=== PATIENT | female | born 1980 | race Caucasian/White ===

== ENCOUNTER 2017-06-25 09:24 | Outpatient (CLI) | payer OTHER ==
--- NOTE | 2017-06-25 17:25 | Ultrasound Report ---
LIMITED OB ULTRASOUND: 06/25/2017 CLINICAL INDICATION: Pre-term labor, check cervical length and position. TECHNIQUE: Real-time scanning was performed with claims service representative static images obtained. LAST MENSTRUAL PERIOD end of 09/2016 Clinical Age 35 weeks 5 days US Age 35 weeks 4 days EFW Hadlock 2601 EFW% Hadlock -- Heart Rate 145 bpm EDC 07/25/2017 US EDC 07/26/2017 BPD Hadlock 37 weeks 1 day; Mean mm 91 HC Hadlock 37 weeks 0 days; Mean mm 326 AC Hadlock 35 weeks 5 days; Mean mm 317 FL Hadlock 32 weeks 3 days; Mean mm 62 Presentation cephalic Placental Location center fundal -maternal left Cervical Length 3.4 cm Amniotic Fluid 11.22 FINDINGS: There is a single viable intrauterine gestation, in cephalic presentation. heart rate is 145 BPM. The placenta is anterior to fundal, without evidence of previa. Amniotic fluid volume is normal, with an amniotic fluid index of 11.2. The cervix is long and closed, measuring 3.4 cm. By size, the fetus measures 35 weeks 4 days (35 weeks 5 days per patient). Estimated weight by Hadlock method is 2601 grams. IMPRESSION: SINGLE VIABLE INTRAUTERINE GESTATION, IN CEPHALIC PRESENTATION. THE CERVIX MEASURES 3.4 CM, AND IS CLOSED. MTDD
== END 2017-06-25 09:25 | disposition home or self-care (01) ==
LOC: DI 09:24
PROVIDERS: ATTEND Midwife
DX: O60.00 Preterm labor without delivery, unspecified trimester (principal)
CPT/HCPCS: 76815

== ENCOUNTER 2017-07-21 16:52 | Emergency (ER) | payer OTHER ==
--- NOTE | 2017-07-21 17:10 | ED Physician Documentation ---
PD HPI FEMALE - Stated complaint Stated Complaint: FEMALE - History obtained from History obtained from: Patient, Family - History of Present Illness Timing - onset: How many hours ago (3) Timing - duration: Hours (3) Timing - details: Abrupt onset Pain level max: 4 Pain level max: 2 - Additional information Additional information: gave to a healthy female baby at 1422 today. Has a reported perineal tear. Here to see OB. Review of Systems Cardiac: denies: Chest pain / pressure Neurologic: denies: Syncope PD PAST MEDICAL HISTORY - Past Medical History Past Medical History: No - Past Surgical History Past Surgical History: No - Present Medications Home Medications: Ambulatory Orders Medication Instructions Recorded Confirmed Cephalexin [Keflex] 500 mg PO Q6H #28 capsule 01/12/16 07/21/17 Venlafaxine HCl [Venlafaxine HCl 300 mg PO DAILY 01/12/16 07/21/17 ER] - Allergies Allergies/Adverse Reactions: Allergies Allergy/AdvReac Type Severity Reaction Status Date / Time acetaminophen [From Vicodin] Allergy Rash Verified 01/12/16 17:28 codeine Allergy Rash Verified 07/21/17 17:12 hydrocodone bitartrate * Allergy Rash Verified 07/21/17 17:12 [From Vicodin] - Social History Does the pt smoke?: No Smoking Status: Never smoker Does the pt drink ETOH?: No Does the pt have substance abuse?: No - Immunizations Immunizations are current?: Yes PD ED PE NORMAL - Vitals Vital signs reviewed: Yes - General General: Alert and oriented X 3, No acute distress - HEENT HEENT: Moist mucous membranes - Neck Neck: Supple, no meningeal sign - Cardiac Cardiac: RRR, Strong equal pulses - Respiratory Respiratory: No respiratory distress, Clear bilaterally - Abdomen Abdomen: Soft, Non tender, Non distended - Derm Derm: Warm and dry - Neuro Neuro: Alert and oriented X 3 - Psych Psych: Normal mood, Normal affect Results - Vitals Vitals: Vital Signs - 24 hr 07/21/17 17:09 Temperature 36.6 C Heart Rate 82 Respiratory 16 Rate Blood Pressure 133/82 H O2 Saturation 98 Oxygen O2 Source Room air PD MEDICAL DECISION MAKING - ED course Complexity details: considered differential, d/w patient, d/w family, d/w technical healthcare consultant ED course: D/w Dr. Pires and pt will be transferred to OB for further evaluation. No acute emergency medical condition that needs to be stabilized in the emergency department at this time. This document was made in part using voice recognition software. While efforts are made to proofread this document, sound alike and grammatical errors may occur. Departure - Departure Disposition: 01 Home, Self Care Clinical Impression: Vaginal laceration Qualifiers: Encounter type: initial encounter Qualified Code(s): S31.41XA - Laceration without foreign body of vagina and vulva, initial encounter Condition: Good Discharge Date/Time: 07/21/17 17:10
[2017-07-21 17:12] VITALS: BP 133/82
== END 2017-07-21 17:10 | disposition home or self-care (01) ==
LOC: ED 16:52
DX: O70.20 Third degree perineal laceration during delivery, unspecified (principal)
CPT/HCPCS: 59300; 85025; A9270; J2060; 96374; 96375; 96376; 99215; 99282; 99283

== ENCOUNTER 2017-07-21 17:10 | Outpatient (CLI) | payer OTHER ==
[2017-07-21] MEDS ORDERED: LIDOCAINE 1% 50 ML MDV ONE (17:44)
[2017-07-21] MEDS ORDERED: SODIUM CHLORIDE FLUSH 0.9% 10 ML SYRINGE IVP ONE ×3 (17:58→18:28)
[2017-07-21] MEDS ORDERED: LORazepam 2 MG/ML VIAL IVP PRN (18:02)
[2017-07-21 18:07] LABS: BASOPHILS % (AUTO) 0.3 %; EOSINOPHILS # (AUTO) 0.1 10^3/uL (0.0-0.7); EOSINOPHILS % (AUTO) 0.3 %; HGB - HEMOGLOBIN 11.2 g/dL (12.0-16.0); LYMPHOCYTES # (AUTO) 1.8 10^3/uL (1.5-3.5); LYMPHOCYTES % (AUTO) 10.2 %; MEAN CORPUSCULAR HEMOGLOBIN 29.7 pg (27.0-31.0); MEAN CORPUSCULAR HGB CONC 33.9 g/dL (32.0-36.0); MEAN CORPUSCULAR VOLUME 87.7 fL (81.0-99.0); MEAN PLATELET VOLUME 7.6 fL (7.9-10.8); MONOCYTES # (AUTO) 0.7 10^3/uL (0.0-1.0); NEUTROPHILS # (AUTO) 14.7 10^3/uL (1.5-6.6); NEUTROPHILS % (AUTO) 85.2 %; PLT - PLATELET COUNT 293 10^3/uL (130-450); RED BLOOD COUNT 3.78 10^6/uL (4.20-5.40); RED CELL DISTRIBUTION WIDTH 12.5 % (12.0-15.0); WHITE BLOOD COUNT 17.3 x10^3/uL (4.8-10.8)
[2017-07-21] MEDS ORDERED: LORazepam 2 MG/ML VIAL IVP ONE (18:10)
[2017-07-21] MEDS ORDERED: fentaNYL 100 MCG/2 ML VIAL IVP PRN ×2 (18:17→19:00)
[2017-07-21] MEDS ORDERED: fentaNYL 100 MCG/2 ML VIAL ONE (18:27)
[2017-07-21] MEDS ORDERED: DOCUSATE SODIUM 100 MG CAPSULE PO SCH (19:45)
[2017-07-21 20:03] VITALS: BP 139/82
--- NOTE | 2017-07-22 09:15 | PROCEDURE REPORT ---
DATE OF SERVICE: 07/21/2017 Physician: Steven Pires MD PREOPERATIVE DIAGNOSES 1. Laceration with extension to third degree suspect. 2. Recent home delivery with vishal [employer]. POSTOPERATIVE DIAGNOSIS: Partial third-degree laceration confirmed and successfully repaired. PROCEDURE: Third-degree laceration repair. SURGEON: Steven Pires MD, FACOG, FICS ANESTHESIA: 20 mL of lidocaine local; Ativan 1 mg; fentanyl 50 mcg. ESTIMATED BLOOD LOSS: 50 mL COMPLICATIONS: None. IV FLUIDS: Hep-Lock IV used only for IV push medications. URINE OUTPUT: None during the current procedure.. FINDINGS: Careful examination of the laceration finds a deep midline second- degree defect that extended through the external anal capsule and partially into the underlying muscle. This capsular defect was on the right side and approximately 15% of the muscle was disrupted. Sterile glove rectal exam confirmed no extension into the rectum. The vaginal portion of the laceration extended upward to approximately 4 cm. There were large hemorrhoids noted, none seemed thrombosed. Cervix was intact. Uterine bleeding was well controlled. Post-repair examination found pentecostalism of external anal sphincter integrity and no rectal extension. INDICATIONS: Just shortly before 5 o'clock, I was informed by Jillian Mcleod tax map technician, that she had a rapid delivery and possible third-degree extension. She was instructed to come to the [facility] with the patient for evaluation and repair. She reported the placenta was delivered intact, and the baby was doing well. Uterus was firm, and bleeding was controlled. TECHNIQUE: Patient went to labor and delivery from the emergency room. Patient was placed in the birthing bed in the dorsal lithotomy position. Note: The bed had been broken down to permit easy access and easy visualization. Patient was understandably excited and anxious, complaining of perineal pain on touch. At first, divided dose of Ativan 0.5 mg was given. Next, the perineum was numbed with lidocaine, approximately 10 mL, which the patient found to be uncomfortable. To provide better analgesia, fentanyl 50 mcg then was given IV push, and the patient was allowed to recover her composure. Jillian Mcleod and were at bedside providing encouragement and supportive care. The wound was examined to determine the extent of the laceration wound. Gelpi retractor was placed into the perineal wound and expanded to provide adequate visualization. The area was rinsed with sterile normal saline and the extent of the wound inspected. The external sphincter defect was closed with 6 interrupted sutures of 3-0 Vicryl in a radial fashion. The capsular defect was roughly one-half of the circumference. Interrupted sutures Of 3-0 Vicryl were placed to reconstruct the sphincter which included the frayed portion of disrupted external anal sphincter. The series of sutures reconstructed the integrity of the external sphincter mechanism. Next, the skin lacerations around the anus and hemorrhoids were closed with 3 strands of running subcuticular 4-0 Vicryl. The vaginal tube was reconstructed with a running interlocked stitch of 2-0 Vicryl. A crown stitch was done with 2-0 Vicryl that brought together the perineal body and elevated the introitus. Deep space was closed with another interrupted 2-0 Vicryl. Perineal skin was closed with interrupted sutures of 4-0 Vicryl. Care was taken to match the introital junction. Post repair, the sterilizer operator inserted the index finger of his left hand and ensured there were no intraluminal stitches or hidden defects. The perineum then was washed with clean water. The patient remained for approximately 60-90 minutes and ensured that she was doing well. She was given complete wound care instructions inclusive of the importance of a high fiber diet with supplemental Colace. Motrin 600 q.6 hours was given for pain. Narcotic was not felt to be warranted. Prior to discharge, patient received complete warning sign and callback instructions. She is to continue ice for 24 hours and then begin a regimen of a daily warm water sitz bath. Follow up in 1 [facility] for wound inspection. cc: Jillian Mcleod TD: 07/21/2017 21:27 [facility]
== END 2017-07-21 19:50 | disposition home or self-care (01) ==
LOC: WFO 17:10 → FBP 17:14 → WFO 19:50
PROVIDERS: ATTEND Obstetrics & Gynecology
DX: O70.20 Third degree perineal laceration during delivery, unspecified (principal)
CPT/HCPCS: 85025; 99215; A9270; J2060

== ENCOUNTER 2018-08-12 17:06 | Outpatient (CLI) | payer OTHER | END 2018-08-12 17:07 | disposition EMS.NT | LOC: EMS 17:06 | PROVIDERS: ATTEND Surgery | DX: Z04.1 Encounter for examination and observation following transport accident (principal); V53.5XXA Driver of pick-up truck or van injured in collision with car, pick-up truck or van in traffic accident, initial encounter; Y92.414 Local residential or business street as the place of occurrence of the external cause ==

== ENCOUNTER 2018-08-16 09:16 | Emergency (ER) | payer OTHER ==
[2018-08-16] MEDS ORDERED: KETOROLAC 60 MG/2 ML VIAL IM STA (09:37)
[2018-08-16] MEDS ORDERED: DEXAMETHASONE 10 MG/ML VIAL PO STA (09:37)
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
[2018-08-16 10:24] VITALS: BP 127/87
== END 2018-08-16 10:45 | disposition home or self-care (01) ==
LOC: ED 09:16
DX: S16.1XXA Strain of muscle, fascia and tendon at neck level, initial encounter (principal); M54.6 Pain in thoracic spine; V43.52XA Car driver injured in collision with other type car in traffic accident, initial encounter
CPT/HCPCS: 72125; 96372; 99283; 99284

== ENCOUNTER 2018-09-19 08:45 | Outpatient (CLI) | payer OTHER ==
[2018-09-19 12:35] LABS: BASOPHILS # (AUTO) 0.1 10^3/uL (0.0-0.1); BASOPHILS % (AUTO) 0.9 %; EOSINOPHILS # (AUTO) 0.2 10^3/uL (0.0-0.7); EOSINOPHILS % (AUTO) 2.6 %; HGB - HEMOGLOBIN 14.1 g/dL (12.0-16.0); LYMPHOCYTES # (AUTO) 1.8 10^3/uL (1.5-3.5); LYMPHOCYTES % (AUTO) 24.6 %; MEAN CORPUSCULAR HEMOGLOBIN 31.6 pg (27.0-31.0); MEAN CORPUSCULAR HGB CONC 34.6 g/dL (32.0-36.0); MEAN CORPUSCULAR VOLUME 91.4 fL (81.0-99.0); MEAN PLATELET VOLUME 7.5 fL (7.9-10.8); MONOCYTES # (AUTO) 0.5 10^3/uL (0.0-1.0); MONOCYTES % (AUTO) 7.3 %; NEUTROPHILS # (AUTO) 4.7 10^3/uL (1.5-6.6); NEUTROPHILS % (AUTO) 64.6 %; PLT - PLATELET COUNT 284 10^3/uL (130-450); RED BLOOD COUNT 4.46 10^6/uL (4.20-5.40); RED CELL DISTRIBUTION WIDTH 12.5 % (12.0-15.0); WHITE BLOOD COUNT 7.3 x10^3/uL (4.8-10.8)
[2018-09-19 13:08] LABS: ALBUMIN 4.5 g/dL (3.2-5.5); ALBUMIN/GLOBULIN RATIO 1.3 (1.0-2.2); ALKALINE PHOSPHATASE 74 IU/L (42-121); ALT ALANINE AMINOTRANSFERASE 129 IU/L (10-60); AST ASPARTATE AMINOTRANSFERASE 128 IU/L (10-42); BILIRUBIN,TOTAL 0.7 mg/dL (0.2-1.0); BUN - BLOOD UREA NITROGEN 11 mg/dL (6-20); CALCIUM 8.7 mg/dL (8.5-10.3); CARBON DIOXIDE - CO2 23 mmol/L (21-32); CHLORIDE 101 mmol/L (101-111); CHOL/HDL RATIO 5.1 (<4.4); CHOLESTEROL 280 mg/dL; CREATININE 0.6 mg/dL (0.4-1.0); GFR - MDRD 114 (>89); GLUCOSE 115 mg/dL (70-100); HDL CHOLESTEROL 55 mg/dL; LDL CHOLESTEROL,CALCULATED 199 mg/dL; LDL/HDL RATIO 3.6 (<4.4); SODIUM 135 mmol/L (135-145); TOTAL PROTEIN 7.9 g/dL (6.7-8.2); VLDL CHOLESTEROL 26 mg/dL
== END 2018-09-19 08:46 ==
LOC: LAB.WCP 08:45
PROVIDERS: ATTEND Nurse Practitioner
DX: Z00.00 Encounter for general adult medical examination without abnormal findings (principal); Z13.29 Encounter for screening for other suspected endocrine disorder; Z13.220 Encounter for screening for lipoid disorders
CPT/HCPCS: 36415; 80053; 80061; 83721; 84443; 85025

== ENCOUNTER 2018-11-04 08:39 | Outpatient (CLI) | payer OTHER ==
--- NOTE | 2018-11-04 10:40 | XRAY Report ---
Reason: LOW BACK PAIN, THORACIC REGION Procedure Date: 11/04/2018 Accession Number: [id number] / [id number] Procedure: WCP - Thoracic Spine 2 View CPT Code: FULL RESULT: EXAM: THORACIC SPINE RADIOGRAPHY EXAM DATE: 11/04/2018 08:58 AM. CLINICAL HISTORY: LOW BACK PAIN, THORACIC REGION. COMPARISON: None. TECHNIQUE: 2 views. FINDINGS: Alignment: Minimal dextroconvex thoracic scoliosis centered about T6-T7. No listhesis. Bones: No fractures or bone lesions. Disks: Normal. Disk heights are maintained. Soft Tissues: Normal. The visualized lungs and cardiomediastinal silhouette are normal. IMPRESSION: Minimal thoracic scoliosis. RADIA
--- NOTE | 2018-11-04 10:40 | XRAY Report ---
Reason: LOW BACK PAIN, THORACIC REGION Procedure Date: 11/04/2018 Accession Number: [id number] / [id number] Procedure: WCP - Lumbar Spine 2 View CPT Code: FULL RESULT: EXAM: LUMBOSACRAL SPINE RADIOGRAPHY EXAM DATE: 11/04/2018 08:58 AM. CLINICAL HISTORY: Low back pain, thoracic region. COMPARISONS: None. TECHNIQUE: 2 views. FINDINGS: Alignment: Minimal lumbar levoscoliosis centered about L2-L3. No listhesis. Bones: Five [id number] lumbar vertebral bodies are present. No fractures or bone lesions. Disks: Normal. Disk heights are maintained. Facets: Mild lower lumbar spine facet arthropathy. Sacroiliac Joints: Unremarkable. Soft Tissues: Normal. The visualized bowel gas pattern is normal. IMPRESSION: Mild degenerative changes. RADIA
== END 2018-11-04 08:40 | disposition home or self-care (01) ==
LOC: DI.WCP 08:39
PROVIDERS: ATTEND Nurse Practitioner
DX: M47.9 Spondylosis, unspecified (principal); M41.9 Scoliosis, unspecified
CPT/HCPCS: 72070; 72100

== ENCOUNTER 2018-11-12 12:53 | Outpatient (CLI) | payer OTHER ==
--- NOTE | 2018-11-14 00:51 | Ultrasound Report ---
Reason: PELVIC PAIN Procedure Date: 11/12/2018 Accession Number: [id number] / [id number] Procedure: US - Pelvic w/Transvaginal CPT Code: FULL RESULT: EXAM: PELVIC ULTRASOUND EXAM DATE: 11/12/2018 02:16 PM. CLINICAL HISTORY: Pelvic pain. COMPARISON: None. TECHNIQUE: Real-time transabdominal pelvic scan performed to identify the uterus and adnexa and as an overview of other pelvic structures, followed by transvaginal scan to provide greater detail of the uterus and adnexa, with static image documentation. FINDINGS: Uterus: 7.5 x 3.6 x 4.8 cm, volume 67.8 cc. Anteverted position. Normal overall size and echotexture. Masses: None. Endometrium: 5.4 mm. Normal. Cervix: Unremarkable. Right Ovary: 2.5 x 2.2 x 2.2 cm, volume 6.3 cc. Normal echotexture and blood flow. Left Ovary: 2.6 x 1.6 x 2.5 cm, volume 5.4 cc. Normal echotexture and blood flow. Free Fluid: None. Other: None. IMPRESSION: Normal pelvic ultrasound. RADIA
== END 2018-11-12 12:54 | disposition home or self-care (01) ==
LOC: DI 12:53
PROVIDERS: ATTEND Nurse Practitioner
DX: R10.2 Pelvic and perineal pain (principal)
CPT/HCPCS: 76830; 76856

== ENCOUNTER 2021-05-19 08:00 | Outpatient (CLI) | payer OTHER ==
[2021-05-19 18:08] LABS: BASOPHILS # (AUTO) 0.1 10^3/uL (0.0-0.1); BASOPHILS % (AUTO) 0.9 %; EOSINOPHILS # (AUTO) 0.1 10^3/uL (0.0-0.7); HCT - HEMATOCRIT 44.3 % (37.0-47.0); HGB - HEMOGLOBIN 14.2 g/dL (12.0-16.0); LYMPHOCYTES # (AUTO) 2.1 10^3/uL (1.5-3.5); LYMPHOCYTES % (AUTO) 25.7 %; MEAN CORPUSCULAR HEMOGLOBIN 29.9 pg (27.0-31.0); MEAN CORPUSCULAR HGB CONC 32.1 g/dL (32.0-36.0); MEAN CORPUSCULAR VOLUME 93.3 fL (81.0-99.0); MEAN PLATELET VOLUME 9.7 fL (7.9-10.8); MONOCYTES # (AUTO) 0.5 10^3/uL (0.0-1.0); MONOCYTES % (AUTO) 6.5 %; NEUTROPHILS # (AUTO) 5.3 10^3/uL (1.5-6.6); NEUTROPHILS % (AUTO) 65.3 %; PLT - PLATELET COUNT 355 10^3/uL (130-450); RED BLOOD COUNT 4.75 10^6/uL (4.20-5.40); RED CELL DISTRIBUTION WIDTH 12.1 % (12.0-15.0); WHITE BLOOD COUNT 8.1 x10^3/uL (4.8-10.8)
[2021-05-19 18:23] LABS: ALBUMIN 4.5 g/dL (3.2-5.5); ALBUMIN/GLOBULIN RATIO 1.2 (1.0-2.2); BILIRUBIN,TOTAL 0.7 mg/dL (0.2-1.0); CALCIUM 9.3 mg/dL (8.5-10.3); CREATININE 0.6 mg/dL (0.4-1.0); TOTAL PROTEIN 8.2 g/dL (6.7-8.2)
[2021-05-20 08:51] LABS: HEPATITIS C ANTIBODY NON-REACTIVE (NON-REACTIVE)
[2021-05-20 10:03] LABS: HEPATITIS B SURFACE ANTIGEN NON-REACTIVE (NON-REACTIVE)
== END 2021-05-19 23:59 | disposition home or self-care (01) ==
LOC: LAB.WCP 08:00
PROVIDERS: ATTEND Family Medicine
DX: R79.89 Other specified abnormal findings of blood chemistry (principal)
CPT/HCPCS: 36415; 80053; 82977; 85025; 86317; 86704; 86709; 86803; 87340

== ENCOUNTER 2022-04-20 07:00 | Outpatient (CLI) | payer OTHER ==
--- NOTE | 2022-04-20 08:25 | Ultrasound Report ---
PROCEDURE: Abdomen Complete INDICATIONS: ABD PAIN TECHNIQUE: Real-time scanning was performed of the abdominal and retroperitoneal organs, with image documentatio n. COMPARISON: None. FINDINGS: Liver: Liver measures 18.5 cm. Increased echogenicity is present. Gallbladder: Within normal limits. Negative Birch's sign. Normal wall thickness. Biliary ducts: Intrahepatic bile ducts are non-dilated. Extrahepatic bile duct caliber measures 4 m m. Normal is 6-7 mm or less in diameter, or 10 mm or less post-cholecystectomy. Pancreas: Visualized portions of the pancreas are sonographically normal. Spleen: Spleen is normal in size and homogeneous in echotexture. Kidneys: Kidneys are normal in size and echotexture. Right kidney measures 13.1 cm long; left kidne y measures 11.6 cm long. No hydronephrosis or nephrolithiasis. No solid masses. Aorta: Visualized aorta is normal in caliber at less than 3 cm. Iliacs: Proximal common iliac arteries are normal in caliber at less than 2.5 cm. IVC: Intrahepatic inferior vena cava is patent. Miscellaneous: No free abdominal fluid. IMPRESSION: Coarse and echogenic hepatic echotexture suggestive of fibrofatty infiltration. Normal gallbladder. N ondilated biliary ducts. Reviewed by: Cuauhtemoc Sanders MD on 04/20/2022 8:23 AM PDT Approved by: Cuauhtemoc Sanders MD on 04/20/2022 8:23 AM PDT Station ID: [id number]
== END 2022-04-20 07:01 | disposition home or self-care (01) ==
LOC: DI 07:00
PROVIDERS: ATTEND Physician Assistant
DX: R10.13 Epigastric pain (principal); R10.11 Right upper quadrant pain; R94.5 Abnormal results of liver function studies

== ENCOUNTER 2022-05-12 13:32 | Outpatient (CLI) | payer OTHER | END 2022-05-12 13:33 | disposition home or self-care (01) | LOC: MAC.MOP 13:32 | PROVIDERS: ATTEND Physician Assistant | DX: R07.89 Other chest pain (principal) | CPT/HCPCS: 93246 ==

== ENCOUNTER → 2022-06-10 | Outpatient (CLI) | payer OTHER | LOC: MAC.MOP 10:30 | PROVIDERS: ATTEND Internal Medicine | DX: I49.8 Other specified cardiac arrhythmias (principal); R00.0 Tachycardia, unspecified | CPT/HCPCS: 93248 ==

== ENCOUNTER 2023-12-07 12:00 | Outpatient (CLI) | payer OTHER | END 2023-12-07 12:01 | disposition home or self-care (01) | LOC: LAB.N 12:00 | PROVIDERS: ATTEND Family Medicine | DX: J02.9 Acute pharyngitis, unspecified (principal) | CPT/HCPCS: 87070; 87077 ==

== ENCOUNTER 2023-12-31 08:00 | Outpatient (CLI) | payer OTHER | END 2023-12-31 08:15 | disposition home or self-care (01) | LOC: LAB.N 08:00 | PROVIDERS: ATTEND Physician Assistant | DX: J02.9 Acute pharyngitis, unspecified (principal) | CPT/HCPCS: 87070 ==